=== PATIENT | male | born 1990 | race Caucasian/White ===

== ENCOUNTER 2017-03-18 22:07 | Inpatient (IN) | payer BC, OTHER ==
[~2017-03-18] VITALS: Ht 185.4 cm; Wt 74.9 kg
[2017-03-18] MEDS ORDERED: diphenhydrAMINE HCL 50 MG/ML VIAL - HS PRN IM (23:45)
[2017-03-18] MEDS ORDERED: ALUMINUM/MAGNESIUM/SIMETH 30 ML CUP PO PRN (23:45)
[2017-03-18] MEDS ORDERED: MAGNESIUM HYDROXIDE SUSP 30 ML CUP PO PRN (23:45)
[2017-03-18] MEDS ORDERED: ACETAMINOPHEN 325 MG TAB PO PRN (23:45)
[2017-03-18] MEDS ORDERED: diphenhydrAMINE HCL 50 MG CAP - HS PRN PO (23:45)
[2017-03-18] MEDS ORDERED: hydrOXYzine HCL 50 MG TAB PO PRN (23:45)
[2017-03-18] MEDS ORDERED: BENZTROPINE MESYLATE 2 MG/2 ML VIAL IM PRN (23:45)
[2017-03-18] MEDS ORDERED: BENZTROPINE MESYLATE 1 MG TAB PO PRN (23:45)
[2017-03-19 00:16] VITALS: BP 113/62; PULSE 84; RESP 18; TEMP 97.4
[2017-03-19 05:31] VITALS: BP 118/71; PULSE 95; RESP 18; TEMP 97.6; O2SAT 98
[2017-03-19 08:59] LABS: ANION GAP 8 MEQ/L (5-15); BICARBONATE 27.4 MEQ/L (21.0-32.0); BLOOD UREA NITROGEN 22 MG/DL (7-18); CHLORIDE 104 MEQ/L (98-107); GLOMERULAR FILTRATION RATE 72 ML/MIN (>89); HDL CHOLESTEROL 30.9 MG/DL (40.0-60.0); LDL CHOLESTEROL 75 MG/DL (0-99); POTASSIUM 3.8 MEQ/L (3.5-5.1); SODIUM (NA) 139 MEQ/L (136-145)
[2017-03-19] MEDS ORDERED: NICOTINE 21 MG/24 HR PATCH T-DERMAL SCH (09:00)
--- NOTE | 2017-03-19 11:31 | HHI.HP ---
Provisional Diagnosis Admission Date Mar 18, 2017 at 23:40 [facility] I. 1. Adjustment disorder, unspecified Rule out behavioral disturbance in the setting of substance intoxication 2. Cannabis abuse 3. Rule out amphetamine abuse [facility] II. Deferred [facility] V. GAF is 60 presently Certification of Person's Competence To Provide Express and Informed Consent I have personally examined Lane Gil , a person being served at [facility] on, Mar 19, 2017 11:31. Express and informed consent means consent voluntarily given in writing, by a competent person, after sufficient explanation and disclosure of the subject matter involved to enable the person to make a knowing and willful decision without any element of force, fraud, deceit, duress, or other form of constraint or coercion. This person is 18 years of age or older, is not now known to be incompetent to consent to treatment with a guardian advocate, and does not have a health care surrogate or proxy currently making medical treatment decisions. I have found this person to be one of the following: [x] Competent to provide express and informed consent, as defined above, for voluntary admission to this facility and is competent to provide express and informed consent for treatment. He/she has the consistent capacity to make well reasoned, willful, and knowing decisions concerning his or her medical or mental health treatment. The person fully and consistently understands the purpose of the admission for examination/placement and is fully capable of personally exercising all rights [place] Incompetent to provide express and informed consent to voluntary admission, and this is incompetent to provide express and informed consent to treatment. The person must be transferred to involuntary status and a petition for a guardian advocate filed with the Circuit Court. [] Refusing to provide express and informed consent to voluntary admission but is competent to provide express and informed consent for treatment. The person must be discharged or transferred to involuntary status. Form shall be completed within 24 hours of a person's arrival at the receiving facility and filed in the clinical record of each person: 1. Admitted on a voluntary basis 2. Permitted to provide express and informed consent to his/her own treatment 3. Allowed to transfer from involuntary to voluntary status 4. Prior to permitting a person to consent to his or her own treatment after having been previously found incompetent to consent to treatment. History of Present Illness Capacity: Has Capacity HPI Mr. Gil is a 26-year-old male with no known past psychiatric history who presents in transfer from [facility] under a Dyer act. Dyer act alleges that the patient was arguing with his father and barricaded himself in his bedroom. When the patient's father forced his way into the room, he allegedly found the patient with a cord wrapped around his neck. There is also a supporting affidavit from the patient's father, which I have reviewed. I have also reviewed the documentation from [facility]. I note the patient's urine toxicology was positive for cannabinoids, and the reading for amphetamines is unclear due to possible presence of an interfering substance per laboratory documentation. Reviewing our own electronic medical record, it appears this is patient's first visit to [facility]. Patient seen and examined with counselor and nurse. Chart reviewed. Case discussed with nursing staff. Patient has been no behavioral problem nor has there been any evidence of any suicidality or homicidality while under observation on the inpatient unit. On my examination today, the patient is calm and cooperative with examination. There does not appear to be any evident thought disorder or psychosis. He explains that he was in an argument with his father and "he just wouldn't leave me alone. When I got up to confront him," father allegedly called the police to have the patient Dyer acted. The patient denies putting a cord around his neck. He denies any suicidal ideation , intent or plan on direct questioning saying that he wants to live for his children and also for his future goals including getting a house. He denies any homicidal ideation, intent or plan. He denies any issues with low mood or elevated mood, nor can I elicit any depressive or hypomanic/manic symptoms. No reported audiovisual hallucinations, nor can I elicit any delusional beliefs. The remainder of the psychiatric ROS is negative. The patient is requesting discharge from the inpatient unit today. With the patient's permission, I have obtained collateral from his brother, Ebenezer Nguyen at [phone]. Mr. Nguyen notes that the patient has no mental health history. There is no family history of mental illness. Mr. Nguyen does not suspect that the patient is abusing substances. Mr. Nguyen notes the patient has no history of issuing suicidal threats, nor does he have any history of suicide attempts. Mr. Nguyen has no concerns regarding the safety of the patient or others if the patient were discharged from the inpatient psychiatric unit today. I additionally tried to obtain collateral from patient's mother, Lory Nguyen at [phone]. I left a voicemail requesting a call back. Counselor obtained further collateral from patient's father, and I have reviewed this collateral with the counselor. Past psychiatric history: Patient denies any history of psychiatric diagnoses. He is not currently under the care of an outpatient psychiatrist. He denies any history of psychiatric admissions although he does say that he was brought into the emergency department about a year ago in [place] when he was walking down a dark street and a precinct police sergeant reportedly thought that he was going to jump into traffic. The patient insists that this was not his intent at the time. He denies any history of suicide attempts. No reported history of violence. Review of Systems Except as stated in HPI: all other systems reviewed are Neg Other No reported headache, vision or hearing changes, chest pain, shortness of breath , bowel or bladder issues. No other physical complaints. Past Psych History Psychological trauma history No reported trauma history Violence risk - others (6 mos) Lower imminent risk. Denies homicidal ideation. No known history of violence. Affidavit from patient's father does allege a threat against father's person, but the patient denies this. No access to guns or firearms. No evidence of any unstable mood, anxiety or psychotic disorder in this patient at this time that would confer risk for violence. Violence risk - self (6 mos) Lower imminent risk. Denies suicidal ideation. No known history of suicide. No family history of suicide. No evidence of any unstable mood, anxiety or psychotic disorder in this patient at this time that would confer risk for suicide. Substance Abuse History Drugs/Alcohol past 12 months Patient reports use of cannabis daily. He also smokes cigarettes. He denies any other substance use. Past Family Social History Coded Allergies: Tracy (Verified Allergy, Intermediate, hives, 03/18/17) Past Medical History Patient denies any medical issues. Current Medications Medications (Trade) Dose Ordered Sig/Eamon Route Start Time Stop Time Status Last Admin (Atarax) 50 mg Q6H PRN PO 03/18/17 23:45 (Cogentin) 1 mg Q12H PRN PO 03/18/17 23:45 (Cogentin Inj) 1 mg Q12H PRN IM 03/18/17 23:45 (Benadryl) 50 mg HS PRN PO 03/18/17 23:45 (Benadryl Inj) 50 mg HS PRN IM 03/18/17 23:45 (Tylenol) 650 mg Q4H PRN PO 03/18/17 23:45 (Milk Of Magnesia Liq) 30 ml DAILY PRN PO 03/18/17 23:45 (Mag-Al Plus Susp Liq) 30 ml Q6H PRN PO 03/18/17 23:45 (Habitrol 21 Mg Patch.24 Hr) 1 patch DAILY T-DERMAL 03/19/17 09:00 Miscellaneous Information 1 HS T-DERMAL 03/19/17 21:00 Family History Patient denies any family history of serious mental illness or suicide. Social History Patient reports that he has been staying with his father. He might go to stay with his mother or brother on discharge from the hospital. He is high school educated. He is single and has 2 sons aged 1 and 5 who are in the custody of their mother. He works as a automotive heavy mechanic. He denies any or legal history. He denies any access to guns or firearms. Patient's Strengths (min. 2) Maintaining basic hygiene. Verbally fluent. Physical Exam Physical examination completed at outside hospital. On my examination today, the patient appears to be well-nourished and well-developed and in no acute physical distress. No motor abnormalities noted. Laboratories and vital signs reviewed: Vital Signs Vital Signs Date Time Temp Pulse Resp B/P Pulse Ox O2 Delivery O2 Flow Rate FiO2 03/19/17 05:31 97.6 95 18 118/71 98 Lab Results Laboratories from outside hospital reviewed: CBC is unremarkable. CMP is unremarkable. Urine drug screen results are as noted above. Urinalysis results reviewed. Mental Status Examination Patient is in hospital gown. He is well groomed and maintaining basic hygiene. He appears to be attending to his basic needs. He is awake and alert and oriented 3. No evidence of delirium. No abnormal motor movements noted. Speech is within normal limits for rate, tone and volume. Lying which and fund of knowledge seem average. Memory is intact. Mood is fair and affect is full and reactive. Thought process linear. No loosening of associations. No evident delusions. Denies audiovisual hallucinations. Denies suicidal or homicidal ideation, intent or plan. Insight and judgment are fair. Assessment & Plan Problem List: (1) Adjustment disorder ICD Code: F43.20 (2) Cannabis abuse ICD Code: F12.10 Assessment & Plan This is a 26-year-old male with psychiatric history as detailed above who presents in transfer from outside hospital under a Dyer act. Dyer act alleges suicidal behavior which the patient flatly denies. He denies any suicidal or homicidal ideation, intent or plan now. There is no evidence of any unstable mood, anxiety or psychotic disorder in this patient at this time. He appears to be attending to his basic needs. Collateral from patient's brother is reassuring. Collateral obtained by counselor from patient's father suggests that the patient may have an amphetamine use disorder, and patient's urine toxicology from outside hospital is ambiguous on this point. It is possible that the patient was experiencing an episode of behavioral disturbance in the setting of amphetamine intoxication, of which he has no recollection. In any event, the patient is psychiatrically stable now. Weighing the acute, chronic, and protective factors and based on the available evidence, I laboratory associate to a reasonable degree of medical certainty that the patient is at low imminent risk of harm to self or others from a mental illness as defined under the Dyer act and his level of function is adequate for outpatient care. Consequently, the patient does not meet criteria for involuntary psychiatric hospitalization. I have offered to retain the patient on the unit for observation, but he has declined. Given that he does not meet criteria for involuntary psychiatric hospitalization and given that he is requesting discharge from the inpatient psychiatric unit today, I must arrange for his discharge home from the inpatient psychiatric unit in stable condition. Patient is to follow-up psychiatrically on an outpatient basis, and we will provide the appropriate referrals. Patient to abstain from substances of abuse. Patient to return to the psychiatric emergency room for any concerning psychiatric symptoms. I have provided the patient with no prescriptions on discharge today. Please note this document serves also as my discharge summary. Discharge Planning Discharge from inpatient unit today. Request HC Surrog/Guard Advoc?: No Problem Qualifiers (1) Adjustment disorder: Qualified Code: F43.20 - Adjustment disorder, unspecified type Julian Beard MD Mar 19, 2017 11:31
[2017-03-19 14:46] LABS: HEMOGLOBIN A1a 1.6 %; HEMOGLOBIN A1b 0.7 %; HEMOGLOBIN Ao 84.5 %; HEMOGLOBIN F 2.5 %; HEMOGLOBIN LA1C 1.8 %; HEMOGLOBIN P3 3.4 %
[2017-03-19] MEDS ORDERED: REMOVE OLD NICOTINE PATCH T-DERMAL SCH (21:00)
== END 2017-03-19 14:50 | disposition home or self-care (01) | DRG 882 ==
LOC: H270 23:40
PROVIDERS: ADMIT Psychiatry & Neurology Psychiatry; ATTEND Psychiatry & Neurology Psychiatry
DX: F43.20 Adjustment disorder, unspecified (principal); F17.210 Nicotine dependence, cigarettes, uncomplicated; F12.10 Cannabis abuse, uncomplicated
CPT/HCPCS: 80048; 80061; 83036